=== PATIENT | female | born 1995 | race Caucasian/White ===

== ENCOUNTER 2021-06-23 13:41 | Emergency (ER) | payer BC ==
[~2021-06-23] VITALS: Ht 175.3 cm; Wt 66.8 kg
[2021-06-23 14:02] VITALS: BP 141/92
[2021-06-23] MEDS ORDERED: ONDA4TAB6 PO (14:32)
== END 2021-06-23 15:02 | disposition home or self-care (01) ==
LOC: ER 13:41
DX: R11.0 Nausea (principal); Z79.899 Other long term (current) drug therapy
CPT/HCPCS: 99283